=== PATIENT | male | born 1955 | race African-American/Black ===

== ENCOUNTER 2017-12-08 05:11 | Inpatient (IN) ==
[2017-12-08] MEDS ORDERED: MethylPREDNISolone Sod Succinate Inj 125 MG/2 ML Vial IV.PUSH ONE (05:37)
--- NOTE | 2017-12-08 05:54 | ED ---
HPI General Chief Complaint: Shortness of Breath/Dyspnea Stated Complaint: Respiratory Time Seen by Provider: 12/08/17 05:35 Source: patient Mode of arrival: EMS Limitations: no limitations History of Present Illness 62-year-old male came to the emergency room brought in by EMS for shortness of breath. Patient says that he has been short of breath for past 3 days. He has history of COPD and CHF. He ran out of his inhalers. He is taking all his other oral medications however. No history of fever or chills as per the patient. He is coughing up greenish colored sputum. Patient is a smoker. Denies any chest pain. Oxygen saturation was 87% on room air. It is 93% with 2 L of nasal cannula. Complaint: Reports shortness of breath Onset (ago): day(s) Severity: moderate Relieving factors: rest Exacerbating factors: exertion Known history of: Reports COPD Related Data Home Medications Medication Instructions Recorded Confirmed aspirin [Aspirin Low Dose] 81 mg PO DAILY 12/08/17 12/08/17 carvedilol [Coreg] 25 mg PO DAILY 12/08/17 12/08/17 lisinopril 20 mg PO DAILY 12/08/17 12/08/17 spironolactone 25 mg PO DAILY 12/08/17 12/08/17 Allergies Allergy/AdvReac Type Severity Reaction Status Date / Time No Known Allergies Allergy Verified 12/08/17 05:13 Review of Systems ROS: all other systems reviewed are negative Respiratory Reports dyspnea and Reports dyspnea on exertion ON LICENSE OF [facility] Medical History Medical History CHF (congestive heart failure) (Acute) COPD (chronic obstructive pulmonary disease) (Acute) HTN (hypertension) (Acute) Surgical History Surgical History History of back surgery (Acute) Family History Family History Other No pertinent family history Social History Social History Substance History: Active Abuse Second Hand Smoke Exposure: Yes Smoking Status: Current every day smoker Tobacco Type: Cigarettes How Often Do You Have a Drink Containing Alcohol: 2 to 4 times a month Recent Travel in [facility] within the Last 8 Weeks: No Recent Out of Country Travel within the Last 8 Weeks: No Substance Abuse Detail Marijuana: Substance Use Status: Active Route Used Substance Abuse: By Mouth Reason for Use: Calm Down and Feels Good Immunization History Tetanus Immunization: >5 Years Exam Narrative Exam Narrative: GENERAL: Awake, alert, moderate distress SKIN: Focused skin assessment warm/dry. HEAD: Atraumatic. Normocephalic. EYES: Pupils equal and round. No scleral icterus. No injection or drainage. ENT: No nasal bleeding or discharge. Mucous membranes pink and moist. NECK: Trachea midline. No JVD. CARDIOVASCULAR: Regular rate and rhythm. No murmur appreciated. RESPIRATORY: No accessory muscle use. Fine crackles bibasilar. GASTROINTESTINAL: Abdomen soft, non-tender, nondistended. Hepatic and splenic margins not palpable. MUSCULOSKELETAL: No obvious deformities. No clubbing. No cyanosis. No edema. NEUROLOGICAL: Awake and alert. No obvious cranial nerve deficits. Motor grossly within normal limits. Normal speech. PSYCHIATRIC: Appropriate mood and affect; insight and judgment normal. Course Initial Documented Vital Signs Temperature 98.7 F 12/08/17 05:13 Pulse Rate 106 H 12/08/17 05:13 Respiratory Rate 20 12/08/17 05:13 Blood Pressure 147/90 H 12/08/17 05:13 Pulse Oximetry 90 L 12/08/17 05:13 Last Documented Vital Signs Temperature 98.3 F 12/11/17 03:00 Pulse Rate 72 12/11/17 06:00 Respiratory Rate 16 12/11/17 04:06 Blood Pressure 113/77 12/11/17 03:00 Pulse Oximetry 97 12/11/17 03:00 Critical Care Time Critical Care Time: Yes Total Critical Care Time: 45 Attestation: Aggregate critical care time was 45 minutes. Time to perform other separately billable procedures was not included in the critical care time. My time did not include minutes spent treating any other patients simultaneously or on activities that did not directly contribute to the patient's treatment. The services I provided to this patient were to treat and/or prevent clinically significant deterioration that could result in: Respiratory distress, hypoxia, pulmonary edema I provided critical care services requiring my management, as noted below: Chart data review, documentation time, medication orders and management, vital sign assessments/reviewing monitor data, ordering and reviewing lab tests, ordering and interpreting/reviewing x-rays and diagnostic studies, care of the patient and discussion of the patient with the admitting physicians. Medical Decision Making MDM Narrative Medical decision making narrative: 5:54 AM awaiting for blood test result. Patient was given 2 DuoNeb treatments. IV Solu-Medrol. I will reassess him. 6:52 AM chest x-ray is read by the radiologist as pulmonary edema. BNP is elevated. Patient received 2 DuoNeb's and was fast asleep. His oxygen saturation on 3 L of oxygen via nasal cannula was 88%. I decided to start BiPAP. Patient has been admitted to the hospitalist to [facility]. I have also given him 60 mg of IV Lasix based on the chest x-ray result. Medical Screen Exam Complete: Yes Emergency Medical Condition: Yes Lab Data Result diagrams: 12/08/17 05:41 12/10/17 00:46 Lab Results 12/08/17 12/08/17 12/08/17 Range/Units 05:41 05:41 05:41 WBC 6.0 (4.0-11.0) th/mm3 RBC 4.10 L (4.50-5.90) mil/mm3 Hgb 13.9 (13.0-17.0) gm/dL Hct 40.7 (39.0-51.0) % MCV 99.5 (80.0-100.0) fL MCH 33.9 (27.0-34.0) pg MCHC 34.1 (32.0-36.0) % RDW 15.2 (11.6-17.2) % Plt Count 168 (150-450) th/mm3 MPV 8.2 (7.0-11.0) fL Neut % (Auto) 52.8 (16.0-70.0) % Lymph % (Auto) 32.3 (9.0-44.0) % [place] % (Auto) 14.0 H (0.0-8.0) % Eos % (Auto) 0.4 (0.0-4.0) % Baso % (Auto) 0.5 (0.0-2.0) % Neut # (Auto) 3.2 (1.8-7.7) th/mm3 Lymph # (Auto) 1.9 (1.0-4.8) th/mm3 [place] # (Auto) 0.8 (0.0-0.9) th/mm3 Eos # (Auto) 0.0 (0.0-0.4) th/mm3 Baso # (Auto) 0.0 (0.0-0.2) th/mm3 WBC Differential . Differential Comment Auto diff final Puncture Site Patient Temperature O2 Saturation (90-100) % ABG pH (7.380-7.420) ABG pCO2 (38-42) mmHg ABG pO2 (61-120) mmHg ABG HCO3 (22-26) mmol/L ABG O2 Content (12.0-20.0) Vol % ABG Base Excess (-2-2) mmol/L ABG Methemoglobin (0-2) % Willie Test Hemoglobin (12.0-16.0) G/DL Carboxyhemoglobin (0-4) % O2 Delivery Device Vent Setting Inspired O2 % Critical Value Sodium 145 (136-145) meq/L Potassium 3.7 (3.5-5.1) meq/L Chloride 111 H (98-107) meq/L Carbon Dioxide 24.6 (21.0-32.0) meq/L Anion Gap 9 (5-15) meq/L BUN 7 (7-18) mg/dL Creatinine 1.07 (0.60-1.30) mg/dL Estimated GFR 85 L (>89) mL/min Random Glucose 82 (74-106) mg/dL Calcium 7.9 L (8.5-10.1) mg/dL Magnesium (1.5-2.5) mg/dL Total Bilirubin 0.6 (0.2-1.0) mg/dL AST 86 H (15-37) U/L ALT 80 H (12-78) U/L Alkaline Phosphatase 83 (45-117) U/L Total Creatine Kinase (39-308) U/L Troponin I 0.03 (0.02-0.05) ng/mL B-Natriuretic Peptide 1070 H (0-100) pg/mL Total Protein 7.2 (6.4-8.2) g/dL Albumin 3.1 L (3.4-5.0) g/dL Urine Opiates Screen (Neg) Ur Barbiturates Screen (Neg) Ur Amphetamines Screen (Neg) U Benzodiazepines Scrn (Neg) Urine Cocaine Screen (Neg) U Cannabinoids Screen (Neg) Serum Alcohol (0-5) mg/dL 12/08/17 12/08/17 12/08/17 Range/Units 05:41 06:53 07:35 WBC (4.0-11.0) th/mm3 RBC (4.50-5.90) mil/mm3 Hgb (13.0-17.0) gm/dL Hct (39.0-51.0) % MCV (80.0-100.0) fL MCH (27.0-34.0) pg MCHC (32.0-36.0) % RDW (11.6-17.2) % Plt Count (150-450) th/mm3 MPV (7.0-11.0) fL Neut % (Auto) (16.0-70.0) % Lymph % (Auto) (9.0-44.0) % [place] % (Auto) (0.0-8.0) % Eos % (Auto) (0.0-4.0) % Baso % (Auto) (0.0-2.0) % Neut # (Auto) (1.8-7.7) th/mm3 Lymph # (Auto) (1.0-4.8) th/mm3 [place] # (Auto) (0.0-0.9) th/mm3 Eos # (Auto) (0.0-0.4) th/mm3 Baso # (Auto) (0.0-0.2) th/mm3 WBC Differential Differential Comment Puncture Site Right radial Patient Temperature 98.6 O2 Saturation 92 (90-100) % ABG pH 7.42 (7.380-7.420) ABG pCO2 39 (38-42) mmHg ABG pO2 85 (61-120) mmHg ABG HCO3 24 (22-26) mmol/L ABG O2 Content 18.0 (12.0-20.0) Vol % ABG Base Excess 0.4 (-2-2) mmol/L ABG Methemoglobin 0.7 (0-2) % Willie Test Present Hemoglobin 13.9 (12.0-16.0) G/DL Carboxyhemoglobin 4.1 H (0-4) % O2 Delivery Device Bipap Vent Setting 12ipap/6epap Inspired O2 60 % Critical Value No Sodium (136-145) meq/L Potassium (3.5-5.1) meq/L Chloride (98-107) meq/L Carbon Dioxide (21.0-32.0) meq/L Anion Gap (5-15) meq/L BUN (7-18) mg/dL Creatinine (0.60-1.30) mg/dL Estimated GFR (>89) mL/min Random Glucose (74-106) mg/dL Calcium (8.5-10.1) mg/dL Magnesium (1.5-2.5) mg/dL Total Bilirubin (0.2-1.0) mg/dL AST (15-37) U/L ALT (12-78) U/L Alkaline Phosphatase (45-117) U/L Total Creatine Kinase (39-308) U/L Troponin I (0.02-0.05) ng/mL B-Natriuretic Peptide (0-100) pg/mL Total Protein (6.4-8.2) g/dL Albumin (3.4-5.0) g/dL Urine Opiates Screen Neg (Neg) Ur Barbiturates Screen Neg (Neg) Ur Amphetamines Screen Neg (Neg) U Benzodiazepines Scrn Neg (Neg) Urine Cocaine Screen Pos H (Neg) U Cannabinoids Screen Neg (Neg) Serum Alcohol 107 H (0-5) mg/dL 12/08/17 12/08/17 12/08/17 Range/Units 08:26 14:05 21:33 WBC (4.0-11.0) th/mm3 RBC (4.50-5.90) mil/mm3 Hgb (13.0-17.0) gm/dL Hct (39.0-51.0) % MCV (80.0-100.0) fL MCH (27.0-34.0) pg MCHC (32.0-36.0) % RDW (11.6-17.2) % Plt Count (150-450) th/mm3 MPV (7.0-11.0) fL Neut % (Auto) (16.0-70.0) % Lymph % (Auto) (9.0-44.0) % [place] % (Auto) (0.0-8.0) % Eos % (Auto) (0.0-4.0) % Baso % (Auto) (0.0-2.0) % Neut # (Auto) (1.8-7.7) th/mm3 Lymph # (Auto) (1.0-4.8) th/mm3 [place] # (Auto) (0.0-0.9) th/mm3 Eos # (Auto) (0.0-0.4) th/mm3 Baso # (Auto) (0.0-0.2) th/mm3 WBC Differential Differential Comment Puncture Site Patient Temperature O2 Saturation (90-100) % ABG pH (7.380-7.420) ABG pCO2 (38-42) mmHg ABG pO2 (61-120) mmHg ABG HCO3 (22-26) mmol/L ABG O2 Content (12.0-20.0) Vol % ABG Base Excess (-2-2) mmol/L ABG Methemoglobin (0-2) % Willie Test Hemoglobin (12.0-16.0) G/DL Carboxyhemoglobin (0-4) % O2 Delivery Device Vent Setting Inspired O2 % Critical Value Sodium 142 (136-145) meq/L Potassium 3.9 4.2 (3.5-5.1) meq/L Chloride 108 H (98-107) meq/L Carbon Dioxide 24.5 (21.0-32.0) meq/L Anion Gap 10 (5-15) meq/L BUN 7 (7-18) mg/dL Creatinine 1.04 (0.60-1.30) mg/dL Estimated GFR 88 L (>89) mL/min Random Glucose 109 H (74-106) mg/dL Calcium 8.5 (8.5-10.1) mg/dL Magnesium 1.7 (1.5-2.5) mg/dL Total Bilirubin (0.2-1.0) mg/dL AST (15-37) U/L ALT (12-78) U/L Alkaline Phosphatase (45-117) U/L Total Creatine Kinase 244 203 (39-308) U/L Troponin I 0.03 Less than 0.02 L (0.02-0.05) ng/mL B-Natriuretic Peptide (0-100) pg/mL Total Protein (6.4-8.2) g/dL Albumin (3.4-5.0) g/dL Urine Opiates Screen (Neg) Ur Barbiturates Screen (Neg) Ur Amphetamines Screen (Neg) U Benzodiazepines Scrn (Neg) Urine Cocaine Screen (Neg) U Cannabinoids Screen (Neg) Serum Alcohol (0-5) mg/dL 12/10/17 Range/Units 00:46 WBC (4.0-11.0) th/mm3 RBC (4.50-5.90) mil/mm3 Hgb (13.0-17.0) gm/dL Hct (39.0-51.0) % MCV (80.0-100.0) fL MCH (27.0-34.0) pg MCHC (32.0-36.0) % RDW (11.6-17.2) % Plt Count (150-450) th/mm3 MPV (7.0-11.0) fL Neut % (Auto) (16.0-70.0) % Lymph % (Auto) (9.0-44.0) % [place] % (Auto) (0.0-8.0) % Eos % (Auto) (0.0-4.0) % Baso % (Auto) (0.0-2.0) % Neut # (Auto) (1.8-7.7) th/mm3 Lymph # (Auto) (1.0-4.8) th/mm3 [place] # (Auto) (0.0-0.9) th/mm3 Eos # (Auto) (0.0-0.4) th/mm3 Baso # (Auto) (0.0-0.2) th/mm3 WBC Differential Differential Comment Puncture Site Patient Temperature O2 Saturation (90-100) % ABG pH (7.380-7.420) ABG pCO2 (38-42) mmHg ABG pO2 (61-120) mmHg ABG HCO3 (22-26) mmol/L ABG O2 Content (12.0-20.0) Vol % ABG Base Excess (-2-2) mmol/L ABG Methemoglobin (0-2) % Willie Test Hemoglobin (12.0-16.0) G/DL Carboxyhemoglobin (0-4) % O2 Delivery Device Vent Setting Inspired O2 % Critical Value Sodium 139 (136-145) meq/L Potassium 4.4 (3.5-5.1) meq/L Chloride 100 D (98-107) meq/L Carbon Dioxide 31.2 (21.0-32.0) meq/L Anion Gap 8 (5-15) meq/L BUN 35 H (7-18) mg/dL Creatinine 1.38 H (0.60-1.30) mg/dL Estimated GFR 63 L (>89) mL/min Random Glucose 141 H (74-106) mg/dL Calcium 8.6 (8.5-10.1) mg/dL Magnesium 1.9 (1.5-2.5) mg/dL Total Bilirubin (0.2-1.0) mg/dL AST (15-37) U/L ALT (12-78) U/L Alkaline Phosphatase (45-117) U/L Total Creatine Kinase (39-308) U/L Troponin I (0.02-0.05) ng/mL B-Natriuretic Peptide (0-100) pg/mL Total Protein (6.4-8.2) g/dL Albumin (3.4-5.0) g/dL Urine Opiates Screen (Neg) Ur Barbiturates Screen (Neg) Ur Amphetamines Screen (Neg) U Benzodiazepines Scrn (Neg) Urine Cocaine Screen (Neg) U Cannabinoids Screen (Neg) Serum Alcohol (0-5) mg/dL Imaging Data Radiologist's impression: Chest X-Ray 12/08/17 05:38 CONCLUSION: Findings suggest pulmonary edema in the medial one third of both lungs. ECG Data Attestation: I personally reviewed and interpreted this ECG as follows: Interpretation: Twelve-lead EKG is reviewed by me. Normal sinus rhythm, left axis deviation, LV strain, tachycardia. Heart rate of 103 bpm. Discharge Plan Discharge Disposition Patient Disposition: 30 Still Patient Discharge Condition Condition: Stable Discharge Order Discharge Orders: Discharge Order (Routine); Ordered 12/11/17 Ordered By: Marin Sandoval Discharge Details Anticipated Discharge Date: 12/11/17 Discharge Comment: Follow up with PCP in three days Follow up with recovery specialist Doctor Corrine Castanon as scheduled. Physicians Team ED Provider: Humphrey Tay Attending Provider: Marin Sandoval Other Providers: Corrine Castanon Status ED Status: Left Department Discharge Information Discharge Date/Time: 12/08/17 09:48
[2017-12-08 05:59] LABS: Baso % (Auto) 0.5 % (0.0-2.0); Eos % (Auto) 0.4 % (0.0-4.0); Hematocrit 40.7 % (39.0-51.0); Hemoglobin 13.9 gm/dL (13.0-17.0); Lymph # (Auto) 1.9 th/mm3 (1.0-4.8); Lymph % (Auto) 32.3 % (9.0-44.0); Mean Corpuscular HGB Conc 34.1 % (32.0-36.0); Mean Corpuscular Hemoglobin 33.9 pg (27.0-34.0); Mean Corpuscular Volume 99.5 fL (80.0-100.0); Mean Platelet Volume 8.2 fL (7.0-11.0); Mono # (Auto) 0.8 th/mm3 (0.0-0.9); Neut # (Auto) 3.2 th/mm3 (1.8-7.7); Neut % (Auto) 52.8 % (16.0-70.0); Platelet Count 168 th/mm3 (150-450); Red Cell Distribution Width 15.2 % (11.6-17.2)
--- NOTE | 2017-12-08 06:03 | XR ---
EXAM DATE: 12/08/2017 5:51 AM EDT AGE/SEX: 62 years / Male INDICATIONS: Short of breath and chest pain. CLINICAL DATA: This is the patient's initial encounter. Patient reports that signs and symptoms have been present for 3 days and indicates a pain score of 6/10. MEDICAL/SURGICAL HISTORY: Congestive heart failure. None. COMPARISON: No prior exams available for comparison. FINDINGS: There is indistinctness of the central bronchopulmonary markings in the hilar and infrahilar region a s well as peribronchial thickening, characteristic of a combination of pulmonary venous hypertension and alveolar edema. The peripheral one third of both lungs are clear. The heart is normal in size. CONCLUSION: Findings suggest pulmonary edema in the medial one third of both lungs. Electronically signed by: Lewis Garces MD 12/08/2017 6:02 AM EDT
[2017-12-08 06:14] LABS: Albumin 3.1 g/dL (3.4-5.0); Anion Gap 9 meq/L (5-15); Aspartate Aminotransferase 86 U/L (15-37); Blood Urea Nitrogen 7 mg/dL (7-18); Calcium 7.9 mg/dL (8.5-10.1); Carbon Dioxide 24.6 meq/L (21.0-32.0); Chloride 111 meq/L (98-107); Glomerular Filtration Rate 85 mL/min (>89); Glucose,Random 82 mg/dL (74-106); Potassium 3.7 meq/L (3.5-5.1); Sodium 145 meq/L (136-145)
[2017-12-08 06:15] LABS: Alanine Aminotransferase 80 U/L (12-78)
[2017-12-08 06:19] LABS: Alkaline Phosphatase 83 U/L (45-117); Total Protein 7.2 g/dL (6.4-8.2); Troponin I 0.03 ng/mL (0.02-0.05)
[2017-12-08] MEDS ORDERED: Bisacodyl 10 MG Supp RECTAL PRN (06:47)
[2017-12-08 07:00] LABS: ABG Base Excess 0.4 mmol/L (-2-2); ABG PCO2 39 mmHg (38-42); ABG PO2 85 mmHg (61-120)
--- NOTE | 2017-12-08 08:38 | P.HP ---
History of Present Illness Primary Care Physician: Odessa Benton Chief Complaint: Shortness of Breath/Dyspnea History of Present Illness: This is a pleasant 62 y/o male who was brought in to Emergency Room Via EMS, due to Shortness of breath for past 3 days. He has history of COPD and CHF. He ran out of his inhalers. He is taking all his other oral medications however. No history of fever or chills as per the patient. He is coughing up greenish colored sputum. Patient is a smoker. Denies any chest pain. Oxygen saturation was 87 % on room air. It is 93% with 2 L of nasal cannula. has Hypertension. Marijuana abuse, received Bronchodilators in ER, IV Solu-Medrol CXR revealed Pulmonary Edema, BNP elevated His oxygen saturation on 3 L of oxygen via nasal cannula was 88%. was placed on BiPAP, admitted to [facility] and given Lasix 60 Mg. WBC 6, Hemoglobin 13.9, Platelet 168, Sodium 145, Potassium 3.7, Creatinine 1.07, BNP 1070. EKG normal sinus rhythm, Left axis deviation, Left Ventricular strain tachycardia. Inpatient Certification: I certify that the inpatient services were ordered in accordance with Medicare regulations governing the order. This includes certification that hospital inpatient services are reasonable and necessary and in the case of services not specified as inpatient-only under 42 CFR 419.22(n), that they are appropriately provided as inpatient services in accordance to with the 2-midnight benchmark under 43 CFR 412.3(e) Estimated Total Length of Stay (Days): 3 Plans for Post Hospital Care: Home Review of Systems All other systems reviewed negative except as stated in HPI [facility] - History History Provided By: Patient - Medical History Medical History: Medical History (Last Reviewed 12/08/17 @ 05:52 by Humphrey Tay MD) CHF (congestive heart failure) COPD (chronic obstructive pulmonary disease) HTN (hypertension) - Surgical History Surgical History: Surgical History (Last Reviewed 12/08/17 @ 05:52 by Humphrey Tay MD) History of back surgery - Family History Family History: Family History (Last Updated 12/08/17 @ 15:27 by Marin Sandoval MD) Other No pertinent family history - Tobacco History Second Hand Smoke Exposure: Yes Tobacco Use In Past 30 Days: Yes Smoking Status: Current every day smoker Tobacco Type: Cigarettes - Alcohol History How Often Do You Have a Drink Containing Alcohol: 4 or more times a week - Substance Use Type Marijuana Status: Active Route Used: By Mouth Reason for Use: Calm Down, Feels Good - Travel History Recent Travel in the [place] Within the Last 8 Weeks: No Recent Travel Out of the Country Within the Last 8 Weeks: No - Immunization History Tetanus Immunization: >5 Years Medications and Allergies Active Medications: Active Medications Al Hydroxide/Mg Hydroxide (Milk Of Magnesia Liq) 30 ml PO Q12H PRN PRN Reason: Mild Constipation Aspirin (Ecotrin) 81 mg PO DAILY [place] Bisacodyl (Dulcolax Supp) 10 mg RECTAL DAILY PRN PRN Reason: SEVERE CONSITIPATION Carvedilol (Coreg) 12.5 mg PO BID [place] Furosemide (Lasix Inj) 40 mg IV.PUSH BID@0900,1800 [place] Lactulose (Lactulose Liq) 30 ml PO DAILY PRN PRN Reason: SEVERE CONSITIPATION Lisinopril (Prinivil) 20 mg PO DAILY [place] Sennosides (Senokot) 17.2 mg PO Q12H PRN PRN Reason: Moderate Constipation Spironolactone (Aldactone) 25 mg PO DAILY [place] Allergies Allergy/AdvReac Type Severity Reaction Status Date / Time No Known Allergies Allergy Verified 12/08/17 05:13 Home Medications Medication Instructions Recorded Confirmed Type aspirin [Aspirin Low Dose] 81 mg PO DAILY 12/08/17 12/08/17 History carvedilol [Coreg] 25 mg PO DAILY 12/08/17 12/08/17 History lisinopril 20 mg PO DAILY 12/08/17 12/08/17 History spironolactone 25 mg PO DAILY 12/08/17 12/08/17 History Exam Vital signs: Vital Signs 12/08/17 05:13 12/08/17 05:16 12/08/17 05:53 Temperature 98.7 F Pulse Rate 106 H 105 H 102 H Respiratory Rate 20 22 24 Blood Pressure 147/90 H 140/90 Pulse Oximetry 90 L 94 L 12/08/17 06:00 12/08/17 06:05 12/08/17 06:35 Temperature Pulse Rate 92 H Respiratory Rate 18 Blood Pressure Pulse Oximetry 91 L 97 12/08/17 06:59 Temperature Pulse Rate 85 Respiratory Rate 22 Blood Pressure 179/85 H Pulse Oximetry Intake & Output 10/26/18 10/27/18 10/27/18 18:59 06:59 18:59 Output Total 850 / 850 Balance -850 / -850 Weight 79.379 kg Output: Urine 850 / 850 Narrative: GENERAL: Awake, alert, moderate distress SKIN: Focused skin assessment warm/dry. HEAD: Atraumatic. Normocephalic. EYES: Pupils equal and round. No scleral icterus. No injection or drainage. ENT: No nasal bleeding or discharge. Mucous membranes pink and moist. NECK: Trachea midline. No JVD. CARDIOVASCULAR: Regular rate and rhythm. No murmur appreciated. RESPIRATORY: No accessory muscle use. Fine crackles bibasilar. GASTROINTESTINAL: Abdomen soft, non-tender, nondistended. Hepatic and splenic margins not palpable. MUSCULOSKELETAL: No obvious deformities. No clubbing. No cyanosis. No edema. NEUROLOGICAL: Awake and alert. No obvious cranial nerve deficits. Motor grossly within normal limits. Normal speech. PSYCHIATRIC: Appropriate mood and affect; insight and judgment normal. Results - Labs CBC & Chem 7: 12/08/17 05:41 12/08/17 08:26 Labs: Laboratory Results - last 24 hr 12/08/17 12/08/17 12/08/17 05:41 05:41 05:41 WBC 6.0 RBC 4.10 L Hgb 13.9 Hct 40.7 MCV 99.5 MCH 33.9 MCHC 34.1 RDW 15.2 Plt Count 168 MPV 8.2 Neut % (Auto) 52.8 Lymph % (Auto) 32.3 [place] % (Auto) 14.0 H Eos % (Auto) 0.4 Baso % (Auto) 0.5 Neut # (Auto) 3.2 Lymph # (Auto) 1.9 [place] # (Auto) 0.8 Eos # (Auto) 0.0 Baso # (Auto) 0.0 WBC Differential . Differential Comment Auto diff final Puncture Site Patient Temperature O2 Saturation ABG pH ABG pCO2 ABG pO2 ABG HCO3 ABG O2 Content ABG Base Excess ABG Methemoglobin Willie Test Hemoglobin Carboxyhemoglobin O2 Delivery Device Vent Setting Inspired O2 Critical Value Sodium 145 Potassium 3.7 Chloride 111 H Carbon Dioxide 24.6 Anion Gap 9 BUN 7 Creatinine 1.07 Estimated GFR 85 L Random Glucose 82 Calcium 7.9 L Total Bilirubin 0.6 AST 86 H ALT 80 H Alkaline Phosphatase 83 Troponin I 0.03 B-Natriuretic Peptide 1070 H Total Protein 7.2 Albumin 3.1 L Serum Alcohol 12/08/17 12/08/17 05:41 06:53 WBC RBC Hgb Hct MCV MCH MCHC RDW Plt Count MPV Neut % (Auto) Lymph % (Auto) [place] % (Auto) Eos % (Auto) Baso % (Auto) Neut # (Auto) Lymph # (Auto) [place] # (Auto) Eos # (Auto) Baso # (Auto) WBC Differential Differential Comment Puncture Site Right radial Patient Temperature 98.6 O2 Saturation 92 ABG pH 7.42 ABG pCO2 39 ABG pO2 85 ABG HCO3 24 ABG O2 Content 18.0 ABG Base Excess 0.4 ABG Methemoglobin 0.7 Willie Test Present Hemoglobin 13.9 Carboxyhemoglobin 4.1 H O2 Delivery Device Bipap Vent Setting 12ipap/6epap Inspired O2 60 Critical Value No Sodium Potassium Chloride Carbon Dioxide Anion Gap BUN Creatinine Estimated GFR Random Glucose Calcium Total Bilirubin AST ALT Alkaline Phosphatase Troponin I B-Natriuretic Peptide Total Protein Albumin Serum Alcohol 107 H - Imaging Impressions Chest X-Ray 12/08/17 05:38 CONCLUSION: Findings suggest pulmonary edema in the medial one third of both lungs. Caprini VTE Risk Assessment Caprini VTE Risk Assessment: Moderate/High Risk (score >= 2) Caprini Risk Assessment Model: Point Value = 1 Point Value = 2 Point Value = 3 Point Value = 5 Age 41-60 Minor surgery BMI > 25 kg/m2 Swollen legs Varicose veins or History of unexplained or recurrent spontaneous Oral contraceptives or hormone replacement Sepsis (< 1 month) Serious lung disease, including pneumonia (< 1 month) Abnormal pulmonary function Acute myocardial infarction Congestive heart failure (< 1 month) History of inflammatory bowel disease Medical patient at bed rest Age 61-74 Arthroscopic surgery Major open surgery (> 45 min) Laparoscopic surgery (> 45 min) Malignancy Confined to bed (> 72 hours) Immobilizing plaster cast Central venous access Age >= 75 History of VTE Family history of VTE Factor V Leiden Prothrombin [id number] Lupus anticoagulant Anticardiolipin antibodies Elevated serum homocysteine Heparin-induced thrombocytopenia Other congenital or acquired thrombophilia Stroke (< 1 month) Elective arthroplasty Hip, pelvis, or leg fracture Acute spinal cord injury (< 1 month) Prophylaxis Regimen: Total Risk Factor Score Risk Level Prophylaxis Regimen 0-1 Low Early ambulation 2 Moderate Order ONE of the following: *Sequential Compression Device (SCD) *Heparin 5000 units SQ BID 3-4 Higher Order ONE of the following medications: *Heparin 5000 units SQ TID *Enoxaparin/Lovenox 40 mg SQ daily (WT < 150 kg, CrCl > 30 mL/min) *Enoxaparin/Lovenox 30 mg SQ daily (WT < 150 kg, CrCl > 10-29 mL/min) *Enoxaparin/Lovenox 30 mg SQ BID (WT < 150 kg, CrCl > 30 mL/min) AND/OR *Sequential Compression Device (SCD) 5 or more Highest Order ONE of the following medications: *Heparin 5000 units SQ TID (Preferred with Epidurals) *Enoxaparin/Lovenox 40 mg SQ daily (WT < 150 kg, CrCl > 30 mL/min) *Enoxaparin/Lovenox 30 mg SQ daily (WT < 150 kg, CrCl > 10-29 mL/min) *Enoxaparin/Lovenox 30 mg SQ BID (WT < 150 kg, CrCl > 30 mL/min) AND *Sequential Compression Device (SCD) Assessment and Plan - Plan 1. Respiratory Failure multifactorial secondary to CHF exacerbation asked for Echocardiogram, continue Lasix 40 mg every 12 hours, COPD exacerbation continue Bronchodilator, Mucolytic and incentive spirometry, Solu-Medrol 40 mg QID. 2. Tobacco dependence strongly recommended to stop smoking 3. Hypertension continue Home medicines and follow 4. Polysubstance abuse, Marijuana in the past, Cocaine positive. 5. Hepatitis C and HIV History states he has history DVT prophylaxis with Lovenox Code Status: full code. Discussed Condition With: Patient and Nurse. Discharge Planning: once improving.
[2017-12-08 08:39] LABS: Amphetamine Screen,Urine Neg (Neg); Barbiturate Screen,Urine Neg (Neg); Cannabinoid Screen,Urine Neg (Neg); Cocaine Screen,Urine Pos (Neg)
[2017-12-08 08:42] LABS: Opiate Screen,Urine Neg (Neg)
[2017-12-08 09:30] LABS: Calcium 8.5 mg/dL (8.5-10.1); Carbon Dioxide 24.5 meq/L (21.0-32.0); Potassium 3.9 meq/L (3.5-5.1)
[2017-12-08 09:34] LABS: Troponin I 0.03 ng/mL (0.02-0.05)
[2017-12-08] MEDS: Lisinopril 20 MG Tablet PO SCH (12:30)
[2017-12-08] MEDS: Carvedilol 12.5 MG Tablet PO SCH ×2 (12:30→20:32)
[2017-12-08] MEDS: Spironolactone 25 MG Tablet PO SCH (12:30)
[2017-12-08] MEDS: guaiFENesin 600 MG ER Tablet PO SCH ×2 (12:30→20:32)
[2017-12-08 15:19] LABS: Creatine Kinase 203 U/L (39-308)
[2017-12-08] MEDS: Enoxaparin Inj 40 MG/0.4 ML Syringe SQ SCH (18:26)
[2017-12-08 21:58] LABS: Potassium 4.2 meq/L (3.5-5.1)
[2017-12-08 21:59] LABS: Magnesium 1.7 mg/dL (1.5-2.5)
--- NOTE | 2017-12-09 00:04 | ECG ---
Date Performed: 12/08/2017 Time Performed: 05:33:29 PTAGE: 62 years EKG: SINUS TACHYCARDIA MARKED LEFT AXIS DEVIATION SEPTAL MYOCARDIAL INFARCTION MODERATE T-WAVE A BNORMALITY, CONSIDER ANTEROLATERAL ISCHEMIA ABNORMAL ECG PREVIOUS TRACING : 06/10/2009 10.42 Compared to previous tracing, THERE IS PSEUDONORMALIZATION OF PREVIOUSLY NOTED INFERIOR T-Wave Inversions DOCTOR: Cj Bird Interpretating Date/Time 12/09/2017 00:03:42
[2017-12-09] MEDS: MethylPREDNISolone Sod Succinate Inj 40 MG/ML Vial IV.PUSH SCH ×5 (01:11→23:50)
[2017-12-09] MEDS: Enoxaparin Inj 40 MG/0.4 ML Syringe SQ SCH (08:11)
[2017-12-09] MEDS: Carvedilol 12.5 MG Tablet PO SCH ×2 (08:11→20:56)
[2017-12-09] MEDS: Lisinopril 20 MG Tablet PO SCH (08:11)
[2017-12-09] MEDS: Spironolactone 25 MG Tablet PO SCH (08:11)
[2017-12-09] MEDS: guaiFENesin 600 MG ER Tablet PO SCH ×2 (08:11→20:56)
--- NOTE | 2017-12-09 08:31 | P.PN ---
Subjective Interval history: This is a pleasant 62 y/o male who was brought in to Emergency Room Via EMS, due to Shortness of breath for past 3 days. He has history of COPD and CHF. He ran out of his inhalers. He is taking all his other oral medications however. No history of fever or chills as per the patient. He is coughing up greenish colored sputum. Patient is a smoker. Denies any chest pain. Oxygen saturation was 87 % on room air. It is 93% with 2 L of nasal cannula. has Hypertension. Marijuana abuse, received Bronchodilators in ER, IV Solu-Medrol CXR revealed Pulmonary Edema, BNP elevated His oxygen saturation on 3 L of oxygen via nasal cannula was 88%. was placed on BiPAP, admitted to [facility] and given Lasix 60 Mg. WBC 6, Hemoglobin 13.9, Platelet 168, Sodium 145, Potassium 3.7, Creatinine 1.07, BNP 1070. EKG normal sinus rhythm, Left axis deviation, Left Ventricular strain tachycardia. 12/09: Seen in his bedroom, his lungs are clear will continue present care until do not have the rest of his Laboratory and Tests performed, no nausea, vomit or diarrhea. Physical Exam Vital signs: Vital Signs 12/08/17 11:53 12/08/17 12:00 12/08/17 12:30 Temperature Pulse Rate 101 H 88 88 Respiratory Rate 27 H 24 26 H Blood Pressure 119/75 122/78 Pulse Oximetry 98 97 98 12/08/17 13:00 12/08/17 13:01 12/08/17 13:30 Temperature Pulse Rate 86 88 89 Respiratory Rate 37 H 34 H 25 H Blood Pressure 135/90 126/97 H Pulse Oximetry 96 96 97 12/08/17 14:00 12/08/17 14:30 12/08/17 15:00 Temperature Pulse Rate 85 77 93 H Respiratory Rate 30 H 22 28 H Blood Pressure 122/86 129/93 H 127/96 H Pulse Oximetry 95 95 96 12/08/17 15:19 12/08/17 15:20 12/08/17 15:38 Temperature Pulse Rate 67 94 H Respiratory Rate 20 38 H Blood Pressure 132/88 Pulse Oximetry 99 97 12/08/17 16:00 12/08/17 19:00 12/08/17 20:00 Temperature 98.4 F 99.0 F Pulse Rate 85 111 H 104 H Respiratory Rate 20 41 H 33 H Blood Pressure Pulse Oximetry 99 95 91 L 12/08/17 20:40 12/08/17 21:00 12/08/17 21:20 Temperature Pulse Rate 83 82 75 Respiratory Rate 30 H 29 H 22 Blood Pressure 131/85 Pulse Oximetry 94 L 96 97 12/08/17 22:00 12/08/17 22:01 12/08/17 23:00 Temperature Pulse Rate 94 H 82 74 Respiratory Rate 24 23 32 H Blood Pressure 104/70 Pulse Oximetry 92 L 92 L 93 L 12/09/17 00:00 12/09/17 00:19 12/09/17 01:00 Temperature 97.6 F Pulse Rate 70 71 69 Respiratory Rate 19 18 20 Blood Pressure 102/69 Pulse Oximetry 94 L 94 L 12/09/17 02:00 12/09/17 03:00 12/09/17 04:00 Temperature 97.9 F Pulse Rate 81 73 71 Respiratory Rate 20 20 27 H Blood Pressure 94/60 L Pulse Oximetry 93 L 95 94 L 12/09/17 04:01 12/09/17 05:00 12/09/17 06:00 Temperature Pulse Rate 80 81 83 Respiratory Rate 33 H 24 24 Blood Pressure 100/68 122/83 Pulse Oximetry 96 95 95 12/09/17 07:00 12/09/17 07:39 12/09/17 08:16 Temperature 98.1 F Pulse Rate 59 L 82 79 Respiratory Rate 28 H 33 H 18 Blood Pressure 111/77 Pulse Oximetry 96 96 99 Intake & Output 12/08/17 12/09/17 12/09/17 18:59 06:59 18:59 Intake Total 400 / 400 Output Total 850 / 850 400 / 400 Balance -850 / -850 0 / 0 Weight 70.5 kg Intake: Oral 400 / 400 Output: Urine 850 / 850 400 / 400 Other: Date of Last Bowel Movement 12/08/17 12/08/17 # Bowel Movements 0 Narrative: GENERAL: Awake, alert and No distress SKIN: Focused skin assessment warm/dry. HEAD: Atraumatic. Normocephalic. EYES: Pupils equal and round. No scleral icterus. No injection or drainage. ENT: No nasal bleeding or discharge. Mucous membranes pink and moist. NECK: Trachea midline. No JVD. CARDIOVASCULAR: Regular rate and rhythm. No murmur appreciated. RESPIRATORY: Breath sounds bilateral without crackles or wheezing. GASTROINTESTINAL: Abdomen soft, non-tender, nondistended. Hepatic and splenic margins not palpable. MUSCULOSKELETAL: No obvious deformities. No clubbing. No cyanosis. No edema. NEUROLOGICAL: Awake and alert. No obvious cranial nerve deficits. PSYCHIATRIC: Appropriate mood and affect; insight and judgment normal. Results - Labs CBC & Chem 7: 12/08/17 05:41 12/08/17 21:33 Laboratory Results - last 24 hr 12/08/17 12/08/17 12/08/17 07:35 08:26 14:05 Sodium 142 Potassium 3.9 Chloride 108 H Carbon Dioxide 24.5 Anion Gap 10 BUN 7 Creatinine 1.04 Estimated GFR 88 L Random Glucose 109 H Calcium 8.5 Magnesium Total Creatine Kinase 244 203 Troponin I 0.03 Less than 0.02 L Urine Opiates Screen Neg Ur Barbiturates Screen Neg Ur Amphetamines Screen Neg U Benzodiazepines Scrn Neg Urine Cocaine Screen Pos H U Cannabinoids Screen Neg 12/08/17 21:33 Sodium Potassium 4.2 Chloride Carbon Dioxide Anion Gap BUN Creatinine Estimated GFR Random Glucose Calcium Magnesium 1.7 Total Creatine Kinase Troponin I Urine Opiates Screen Ur Barbiturates Screen Ur Amphetamines Screen U Benzodiazepines Scrn Urine Cocaine Screen U Cannabinoids Screen - Imaging Chest X-Ray 12/08/17 05:38 CONCLUSION: Findings suggest pulmonary edema in the medial one third of both lungs. - Procedures none Assessment and Plan - Plan 1. Respiratory Failure multifactorial secondary to CHF exacerbation asked for Echocardiogram, continue Lasix 40 mg every 12 hours, COPD exacerbation continue Bronchodilator, Mucolytic and incentive spirometry, Solu-Medrol decreased to 20 mg QID. 2. CHF exacerbation awaiting for Echocardiogram for staging. 3. Hypertension continue Home medicines and follow 4. Polysubstance abuse, Marijuana in the past, Cocaine positive. strongly recommended to stop behavior. 5. Hepatitis C and HIV History states he has history and receiving treatment as outpatient. 6. Tobacco dependence strongly recommended to stop smoking DVT prophylaxis with Lovenox Code Status: Full code. Discussed Condition With: Patient and nurse Miss Schuler Discharge Planning: Expected in am tomorrow.
--- NOTE | 2017-12-09 15:02 | ECHRPT ---
Indication: heart failure CONCLUSIONS Mild concentric left ventricular hypertrophy. The left ventricular systolic function is severely reduced with an estimated ejection fraction in th e range of 25-30%. The left atrial size is mildly dilated. [id number] mitral valve regurgitation. There is mild tricuspid valve regurgitation. The estimated pulmonary arterial pressure is 27 mmHg. BP: / HR: Rhythm: MEASUREMENTS (Male / Female) Normal Values Technical Quality: 2D ECHO LV Diastolic Diameter PLAX 5.4 cm 4.2 - 5.9 / 3.9 - 5.3 cm LV Systolic Diameter PLAX 5.0 cm IVS Diastolic Thickness 1.4 cm 0.6 - 1.0 / 0.6 - 0.9 cm LVPW Diastolic Thickness 1.4 cm 0.6 - 1.0 / 0.6 - 0.9 cm LV Relative Wall Thickness 0.5 LVOT Diameter 2.1 cm Aortic Root Diameter 2.3 cm LA Systolic Diameter LX 4.1 cm 3.0 - 4.0 / 2.7 - 3.8 cm LV Ejection Fraction MOD BP 28.0 % >= 55 % LV Ejection Fraction MOD 4C 26.7 % LV Ejection Fraction 4C AL 26.7 % LV Ejection Fraction MOD 2C 29.7 % LV Ejection Fraction 2C AL 29.5 % M-MODE Aortic Root Diameter MM 3.4 cm LA Systolic Diameter MM 3.0 cm LA Ao Ratio MM 0.9 AV Cusp Separation MM 1.8 cm DOPPLER AV Peak Velocity 140.0 cm/s AV Peak Gradient 7.8 mmHg LVOT Peak Velocity 56.3 cm/s LVOT Peak Gradient 1.3 mmHg AV Area Cont Eq pk 1.4 cm Mitral E Point Velocity 65.6 cm/s Mitral A Point Velocity 62.7 cm/s Mitral E to A Ratio 1.0 LV E' Lateral Velocity 7.0 cm/s Mitral E to LV E' Lateral Ratio 9.3 LV E' Septal Velocity 6.3 cm/s Mitral E to LV E' Septal Ratio 10.3 TR Peak Velocity 208.0 cm/s TR Peak Gradient 17.3 mmHg Right Atrial Pressure 10.0 mmHg Pulmonary Artery Systolic Pressu 27.3 mmHg Right Ventricular Systolic Press 27.3 mmHg PV Peak Velocity 104.0 cm/s PV Peak Gradient 4.3 mmHg FINDINGS LEFT VENTRICLE Normal left ventricular size. Mild concentric left ventricular hypertrophy. The left ventricular systolic function is severely reduced with an estimated ejection fraction in th e range of 25-30%. RIGHT VENTRICLE Normal right ventricular size and systolic function. LEFT ATRIUM The left atrial size is mildly dilated. RIGHT ATRIUM The right atrial size is normal. ATRIAL SEPTUM Normal atrial septal thickness without atrial level shunting by limited color doppler interrogation. AORTA The aortic root and proximal ascending aorta are normal in size on limited imaging. MITRAL VALVE [id number] mitral valve regurgitation. AORTIC VALVE Trileaflet aortic valve. No aortic valve stenosis or regurgitation. TRICUSPID VALVE There is mild tricuspid valve regurgitation. The estimated pulmonary arterial pressure is 27 mmHg. PULMONARY VALVE No pulmonary valve regurgitation or stenosis. VESSELS The inferior vena cava is normal in size. PERICARDIUM No pericardial effusion. Nayana Vo MD, FACC (Electronically Signed) Final Date:09 December 2017 15:01
[2017-12-09] MEDS: Furosemide 40 MG Tablet PO SCH (17:16)
[2017-12-10 01:38] LABS: Calcium 8.6 mg/dL (8.5-10.1); Carbon Dioxide 31.2 meq/L (21.0-32.0); Magnesium 1.9 mg/dL (1.5-2.5); Potassium 4.4 meq/L (3.5-5.1)
[2017-12-10] MEDS: MethylPREDNISolone Sod Succinate Inj 40 MG/ML Vial IV.PUSH SCH ×4 (05:41→23:37)
[2017-12-10] MEDS: guaiFENesin 600 MG ER Tablet PO SCH ×2 (08:24→21:40)
[2017-12-10] MEDS: Lisinopril 20 MG Tablet PO SCH (08:24)
[2017-12-10] MEDS: Enoxaparin Inj 40 MG/0.4 ML Syringe SQ SCH (08:24)
[2017-12-10] MEDS: Spironolactone 25 MG Tablet PO SCH (08:24)
[2017-12-10] MEDS: Carvedilol 12.5 MG Tablet PO SCH ×2 (08:24→21:40)
[2017-12-10] MEDS: Furosemide 40 MG Tablet PO SCH ×2 (08:58→17:08)
--- NOTE | 2017-12-10 09:25 | P.PN ---
Subjective Interval history: This is a pleasant 62 y/o male who was brought in to Emergency Room Via EMS, due to Shortness of breath for past 3 days. He has history of COPD and CHF. He ran out of his inhalers. He is taking all his other oral medications however. No history of fever or chills as per the patient. He is coughing up greenish colored sputum. Patient is a smoker. Denies any chest pain. Oxygen saturation was 87 % on room air. It is 93% with 2 L of nasal cannula. has Hypertension. Marijuana abuse, received Bronchodilators in ER, IV Solu-Medrol CXR revealed Pulmonary Edema, BNP elevated His oxygen saturation on 3 L of oxygen via nasal cannula was 88%. was placed on BiPAP, admitted to [facility] and given Lasix 60 Mg. WBC 6, Hemoglobin 13.9, Platelet 168, Sodium 145, Potassium 3.7, Creatinine 1.07, BNP 1070. EKG normal sinus rhythm, Left axis deviation, Left Ventricular strain tachycardia. 12/09: Seen in his bedroom, his lungs are clear will continue present care until do not have the rest of his Laboratory and Tests performed. 12/10: Had his Echocardiogram found with Mild concentric left ventricular Hypertrophy, severely reduced Ejection fraction, 25-30%, mildly dilated left atrium, tricuspid valve regurgitation, Pulmonary arterial Pressure 27 mm Hg. Discussed with ammunition specialist doctor Corrine Castanon recommended to continue Lasix and okay to discharge Home on LifeVest and close follow up by ammunition specialist. Physical Exam Vital signs: Vital Signs 12/09/17 09:40 12/09/17 10:33 12/09/17 11:30 Temperature Pulse Rate 80 60 59 L Respiratory Rate 18 Blood Pressure Pulse Oximetry 12/09/17 12:00 12/09/17 13:00 12/09/17 14:00 Temperature 98.1 F Pulse Rate 79 68 72 Respiratory Rate 16 Blood Pressure 119/91 H Pulse Oximetry 98 12/09/17 14:28 12/09/17 16:00 12/09/17 16:24 Temperature 98.1 F Pulse Rate 68 79 71 Respiratory Rate 18 18 Blood Pressure 117/76 Pulse Oximetry 97 12/09/17 16:51 12/09/17 17:26 12/09/17 19:00 Temperature Pulse Rate 77 80 82 Respiratory Rate Blood Pressure Pulse Oximetry 12/09/17 20:00 12/09/17 21:00 12/09/17 21:37 Temperature 98.2 F Pulse Rate 81 86 67 Respiratory Rate 20 16 Blood Pressure 104/57 L Pulse Oximetry 98 97 12/09/17 22:00 12/09/17 23:00 12/09/17 23:50 Temperature Pulse Rate 83 83 89 Respiratory Rate 18 Blood Pressure Pulse Oximetry 12/10/17 00:00 12/10/17 01:00 12/10/17 02:00 Temperature 98.3 F Pulse Rate 76 79 70 Respiratory Rate 18 Blood Pressure 108/73 Pulse Oximetry 98 12/10/17 03:00 12/10/17 03:24 12/10/17 03:45 Temperature 98.1 F Pulse Rate 68 67 62 Respiratory Rate 18 18 Blood Pressure 114/78 Pulse Oximetry 97 12/10/17 04:00 12/10/17 05:00 12/10/17 05:57 Temperature Pulse Rate 62 66 69 Respiratory Rate Blood Pressure Pulse Oximetry 12/10/17 07:00 12/10/17 07:30 12/10/17 07:45 Temperature Pulse Rate 70 77 72 Respiratory Rate 16 Blood Pressure Pulse Oximetry 97 12/10/17 08:00 12/10/17 08:48 Temperature 98.0 F Pulse Rate 80 80 Respiratory Rate 18 Blood Pressure 115/82 Pulse Oximetry 96 Intake & Output 12/09/17 12/10/17 12/10/17 18:59 06:59 18:59 Intake Total 1220 / 1220 480 / 480 Output Total 750 / 750 650 / 650 Balance 470 / 470 -170 / -170 Weight 72 kg Intake: Oral 1220 / 1220 480 / 480 Output: Urine 750 / 750 650 / 650 Other: Date of Last Bowel Movement 12/09/17 12/09/17 12/08/17 # Bowel Movements 1 0 Narrative: GENERAL: Awake, alert and No distress SKIN: Focused skin assessment warm/dry. HEAD: Atraumatic. Normocephalic. EYES: Pupils equal and round. No scleral icterus. No injection or drainage. ENT: No nasal bleeding or discharge. Mucous membranes pink and moist. NECK: Trachea midline. No JVD. CARDIOVASCULAR: Regular rate and rhythm. No murmur appreciated. RESPIRATORY: Breath sounds bilateral without crackles or wheezing. GASTROINTESTINAL: Abdomen soft, non-tender, nondistended. Hepatic and splenic margins not palpable. MUSCULOSKELETAL: No obvious deformities. No clubbing. No cyanosis. No edema. NEUROLOGICAL: Awake and alert. No obvious cranial nerve deficits. PSYCHIATRIC: Appropriate mood and affect; insight and judgment normal. Results - Labs CBC & Chem 7: 12/08/17 05:41 12/10/17 00:46 Laboratory Results - last 24 hr 12/10/17 00:46 Sodium 139 Potassium 4.4 Chloride 100 D Carbon Dioxide 31.2 Anion Gap 8 BUN 35 H Creatinine 1.38 H Estimated GFR 63 L Random Glucose 141 H Calcium 8.6 Magnesium 1.9 - Imaging Chest X-Ray 12/08/17 05:38 CONCLUSION: Findings suggest pulmonary edema in the medial one third of both lungs. - Procedures none Assessment and Plan - Plan 1. Respiratory Failure multifactorial secondary to CHF exacerbation asked for Echocardiogram, continue Lasix 40 mg every 12 hours, COPD exacerbation continue Bronchodilator, Mucolytic and incentive spirometry, Solu-Medrol decreased to 20 mg QID. will switch to by mouth Prednisone starting tomorrow low dose for five days. 2. CHF exacerbation awaiting for Echocardiogram for staging. Improving will decrease dose of Lasix to 40 Mg daily, will need LifeVest for discharge. he had mild increase of Creatinine level. to 1.38 3. Hypertension controlled. 4. Polysubstance abuse, Marijuana in the past, Cocaine positive. strongly recommended to stop behavior. 5. Hepatitis C and HIV History states he has history and receiving treatment as outpatient. 6. Tobacco dependence strongly recommended to stop smoking DVT prophylaxis with Lovenox Code Status: Full code. Discussed Condition With: Patient and Nurse Miss Schuler. Discharge Planning: Expected in am tomorrow.
--- NOTE | 2017-12-10 11:47 | P.CONCA ---
History of Present Illness Primary Care Provider: Odessa Benton Chief Complaint: Shortness of Breath/Dyspnea [facility] - History History Provided By: Patient - Medical History Medical History: Medical History (Last Reviewed 12/08/17 @ 05:52 by Humphrey Tay MD) CHF (congestive heart failure) COPD (chronic obstructive pulmonary disease) HTN (hypertension) - Surgical History Surgical History: Surgical History (Last Reviewed 12/08/17 @ 05:52 by Humphrey Tay MD) History of back surgery - Family History Family History: Family History (Last Updated 12/08/17 @ 15:27 by Marin Sandoval MD) Other No pertinent family history - Tobacco History Second Hand Smoke Exposure: Yes Tobacco Use In Past 30 Days: Yes Smoking Status: Current every day smoker Tobacco Type: Cigarettes - Alcohol History How Often Do You Have a Drink Containing Alcohol: 2 to 4 times a month - Substance Use History Substance History: Active Abuse - Substance Use Type Marijuana Type: marijuana, coccaine Status: Active Route Used: Inhalation Last Used: last night Reason for Use: Get High - Travel History Recent Travel in the [place] Within the Last 8 Weeks: No Recent Travel Out of the Country Within the Last 8 Weeks: No - Immunization History Tetanus Immunization: Unsure Hx Influenza Vaccine This Season: No Medications and Allergies Active Medications: Active Medications Al Hydroxide/Mg Hydroxide (Milk Of Shanda Conde) 30 ml PO Q12H PRN PRN Reason: Mild Constipation Albuterol (Duoneb Neb (Hitesh)) 1 ampul NEB Q4HR NEB [facility] Last Admin: 12/10/17 11:39 Dose: 1 ampul Aspirin (Ecotrin) 81 mg PO DAILY [facility] Last Admin: 12/10/17 08:24 Dose: 81 mg Bisacodyl (Dulcolax Supp) 10 mg RECTAL DAILY PRN PRN Reason: SEVERE CONSITIPATION Carvedilol (Coreg) 12.5 mg PO BID [facility] Last Admin: 12/10/17 08:24 Dose: 12.5 mg Enoxaparin Sodium (Lovenox Inj) 40 mg SQ DAILY [facility] Last Admin: 12/10/17 08:24 Dose: 40 mg Furosemide (Lasix) 40 mg PO BID@0900,1800 [facility] Last Admin: 12/10/17 08:58 Dose: Not Given Guaifenesin (Mucinex Er) 600 mg PO BID [facility] Last Admin: 12/10/17 08:24 Dose: 600 mg Lactulose (Lactulose Liq) 30 ml PO DAILY PRN PRN Reason: SEVERE CONSITIPATION Lisinopril (Prinivil) 20 mg PO DAILY [facility] Last Admin: 12/10/17 08:24 Dose: 20 mg Methylprednisolone Sodium Succinate (Solumedrol Inj) 20 mg IV.PUSH Q6H [facility] Last Admin: 12/10/17 11:36 Dose: 20 mg Sennosides (Senokot) 17.2 mg PO Q12H PRN PRN Reason: Moderate Constipation Spironolactone (Aldactone) 25 mg PO DAILY [facility] Last Admin: 12/10/17 08:24 Dose: 25 mg Allergies Allergy/AdvReac Type Severity Reaction Status Date / Time No Known Allergies Allergy Verified 12/08/17 05:13 Home Medications Medication Instructions Recorded Confirmed Type aspirin [Aspirin Low Dose] 81 mg PO DAILY 12/08/17 12/08/17 History carvedilol [Coreg] 25 mg PO DAILY 12/08/17 12/08/17 History lisinopril 20 mg PO DAILY 12/08/17 12/08/17 History spironolactone 25 mg PO DAILY 12/08/17 12/08/17 History Exam Vital signs: Vital Signs 12/09/17 12:00 12/09/17 13:00 12/09/17 14:00 Temperature 98.1 F Pulse Rate 79 68 72 Respiratory Rate 16 Blood Pressure 119/91 H Pulse Oximetry 98 12/09/17 14:28 12/09/17 16:00 12/09/17 16:24 Temperature 98.1 F Pulse Rate 68 79 71 Respiratory Rate 18 18 Blood Pressure 117/76 Pulse Oximetry 97 12/09/17 16:51 12/09/17 17:26 12/09/17 19:00 Temperature Pulse Rate 77 80 82 Respiratory Rate Blood Pressure Pulse Oximetry 12/09/17 20:00 12/09/17 21:00 12/09/17 21:37 Temperature 98.2 F Pulse Rate 81 86 67 Respiratory Rate 20 16 Blood Pressure 104/57 L Pulse Oximetry 98 97 12/09/17 22:00 12/09/17 23:00 12/09/17 23:50 Temperature Pulse Rate 83 83 89 Respiratory Rate 18 Blood Pressure Pulse Oximetry 12/10/17 00:00 12/10/17 01:00 12/10/17 02:00 Temperature 98.3 F Pulse Rate 76 79 70 Respiratory Rate 18 Blood Pressure 108/73 Pulse Oximetry 98 12/10/17 03:00 12/10/17 03:24 12/10/17 03:45 Temperature 98.1 F Pulse Rate 68 67 62 Respiratory Rate 18 18 Blood Pressure 114/78 Pulse Oximetry 97 12/10/17 04:00 12/10/17 05:00 12/10/17 05:57 Temperature Pulse Rate 62 66 69 Respiratory Rate Blood Pressure Pulse Oximetry 12/10/17 07:00 12/10/17 07:30 12/10/17 07:45 Temperature Pulse Rate 70 77 72 Respiratory Rate 16 Blood Pressure Pulse Oximetry 97 12/10/17 08:00 12/10/17 08:48 12/10/17 09:56 Temperature 98.0 F Pulse Rate 80 80 92 H Respiratory Rate 18 Blood Pressure 115/82 Pulse Oximetry 96 12/10/17 11:00 12/10/17 11:41 Temperature Pulse Rate 89 78 Respiratory Rate 16 Blood Pressure Pulse Oximetry Intake & Output 12/09/17 12/10/17 12/10/17 18:59 06:59 18:59 Intake Total 1220 / 1220 480 / 480 Output Total 750 / 750 650 / 650 Balance 470 / 470 -170 / -170 Weight 72 kg Intake: Oral 1220 / 1220 480 / 480 Output: Urine 750 / 750 650 / 650 Other: Date of Last Bowel Movement 12/09/17 12/09/17 12/08/17 # Bowel Movements 1 0 Results 12/08/17 05:41 12/10/17 00:46 Cardiac Enzymes 12/08/17 Range/Units 14:05 Troponin I Less than 0.02 L (0.02-0.05) ng/mL Comprehensive Metabolic Panel 12/08/17 12/10/17 Range/Units 21:33 00:46 Sodium 139 (136-145) meq/L Potassium 4.2 4.4 (3.5-5.1) meq/L Chloride 100 D (98-107) meq/L Carbon Dioxide 31.2 (21.0-32.0) meq/L BUN 35 H (7-18) mg/dL Creatinine 1.38 H (0.60-1.30) mg/dL Calcium 8.6 (8.5-10.1) mg/dL Intake and Output 12/09/17 12/10/17 12/10/17 22:59 06:59 14:59 Intake Total 1220 / 1220 480 / 480 Output Total 750 / 750 650 / 650 Balance 470 / 470 -170 / -170 Intake: Oral 1220 / 1220 480 / 480 Output: Urine 750 / 750 650 / 650 Other: Date of Last Bowel Movement 12/08/17 12/09/17 12/08/17 # Bowel Movements 1 0 Weight 72 kg Assessment and Plan - Plan DCM EF 25-30% continue Coreg, Lisinopril, and Spirinolacone, has been on this regimen for 5 years continue lasix 40mg po BID -ok to d/c home once fitted with lifevest -close follow up with primary facility maintenance worker
[2017-12-11] MEDS: MethylPREDNISolone Sod Succinate Inj 40 MG/ML Vial IV.PUSH SCH (06:16)
[2017-12-11] MEDS: Lisinopril 20 MG Tablet PO SCH (09:14)
[2017-12-11] MEDS: Enoxaparin Inj 40 MG/0.4 ML Syringe SQ SCH (09:14)
[2017-12-11] MEDS: guaiFENesin 600 MG ER Tablet PO SCH ×2 (09:14→20:01)
[2017-12-11] MEDS: Carvedilol 12.5 MG Tablet PO SCH ×2 (09:14→20:01)
[2017-12-11] MEDS: Spironolactone 25 MG Tablet PO SCH (09:15)
--- NOTE | 2017-12-11 09:25 | P.PN ---
Subjective Interval history: This is a pleasant 62 y/o male who was brought in to Emergency Room Via EMS, due to Shortness of breath for past 3 days. He has history of COPD and CHF. He ran out of his inhalers. He is taking all his other oral medications however. No history of fever or chills as per the patient. He is coughing up greenish colored sputum. Patient is a smoker. Denies any chest pain. Oxygen saturation was 87 % on room air. It is 93% with 2 L of nasal cannula. has Hypertension. Marijuana abuse, received Bronchodilators in ER, IV Solu-Medrol CXR revealed Pulmonary Edema, BNP elevated His oxygen saturation on 3 L of oxygen via nasal cannula was 88%. was placed on BiPAP, admitted to [facility] and given Lasix 60 Mg. WBC 6, Hemoglobin 13.9, Platelet 168, Sodium 145, Potassium 3.7, Creatinine 1.07, BNP 1070. EKG normal sinus rhythm, Left axis deviation, Left Ventricular strain tachycardia. 12/09: Seen in his bedroom, his lungs are clear will continue present care until do not have the rest of his Laboratory and Tests performed. 12/10: Had his Echocardiogram found with Mild concentric left ventricular Hypertrophy, severely reduced Ejection fraction, 25-30%, mildly dilated left atrium, tricuspid valve regurgitation, Pulmonary arterial Pressure 27 mm Hg. Discussed with credentialing specialist doctor Corrnie Castanon recommended to continue Lasix and okay to discharge Home on LifeVest and close follow up by credentialing specialist. 12/11: patient discussed with nurse Miss Morrell and MDR, he will go later today after LifeVest placed. okay to discharge by credentialing specialist and follow as outpatient. Physical Exam Vital signs: Vital Signs 12/10/17 09:56 12/10/17 11:00 12/10/17 11:41 Temperature Pulse Rate 92 H 89 78 Respiratory Rate 16 Blood Pressure Pulse Oximetry 12/10/17 12:00 12/10/17 13:00 12/10/17 13:45 Temperature 98.6 F Pulse Rate 82 80 85 Respiratory Rate 18 Blood Pressure 116/82 Pulse Oximetry 100 12/10/17 15:00 12/10/17 16:00 12/10/17 16:16 Temperature 98.7 F Pulse Rate 94 H 75 76 Respiratory Rate 18 18 Blood Pressure 112/70 Pulse Oximetry 95 12/10/17 17:00 12/10/17 17:37 12/10/17 19:00 Temperature Pulse Rate 82 89 80 Respiratory Rate Blood Pressure Pulse Oximetry 12/10/17 20:00 12/10/17 20:14 12/10/17 21:00 Temperature 98.2 F Pulse Rate 72 89 66 Respiratory Rate 16 19 Blood Pressure 124/79 Pulse Oximetry 97 12/10/17 22:00 12/10/17 23:00 12/10/17 23:51 Temperature Pulse Rate 70 64 72 Respiratory Rate 16 Blood Pressure Pulse Oximetry 12/11/17 00:00 12/11/17 01:00 12/11/17 02:00 Temperature 98.2 F Pulse Rate 69 72 72 Respiratory Rate 16 Blood Pressure 114/75 Pulse Oximetry 98 12/11/17 03:00 12/11/17 04:00 12/11/17 04:06 Temperature 98.3 F Pulse Rate 72 62 59 L Respiratory Rate 16 16 Blood Pressure 113/77 Pulse Oximetry 97 12/11/17 05:00 12/11/17 06:00 Temperature Pulse Rate 65 72 Respiratory Rate Blood Pressure Pulse Oximetry Intake & Output 12/10/17 12/11/17 12/11/17 18:59 06:59 18:59 Intake Total 920 / 920 480 / 480 Output Total 1150 / 1150 400 / 400 Balance -230 / -230 80 / 80 Weight 72 kg Intake: Oral 920 / 920 480 / 480 Output: Urine 1150 / 1150 400 / 400 Other: # Voids 1 Date of Last Bowel Movement 12/10/17 12/10/17 # Bowel Movements 1 1 Narrative: GENERAL: Awake, alert and No distress SKIN: Focused skin assessment warm/dry. HEAD: Atraumatic. Normocephalic. EYES: Pupils equal and round. No scleral icterus. No injection or drainage. ENT: No nasal bleeding or discharge. Mucous membranes pink and moist. NECK: Trachea midline. No JVD. CARDIOVASCULAR: Regular rate and rhythm. No murmur appreciated. RESPIRATORY: Breath sounds bilateral without crackles or wheezing. GASTROINTESTINAL: Abdomen soft, non-tender, nondistended. Hepatic and splenic margins not palpable. MUSCULOSKELETAL: No obvious deformities. No clubbing. No cyanosis. No edema. NEUROLOGICAL: Awake and alert. No obvious cranial nerve deficits. PSYCHIATRIC: Appropriate mood and affect; insight and judgment normal. Results - Labs CBC & Chem 7: 12/08/17 05:41 12/10/17 00:46 - Imaging Chest X-Ray 12/08/17 05:38 CONCLUSION: Findings suggest pulmonary edema in the medial one third of both lungs. - Procedures none Assessment and Plan - Plan 1. Respiratory Failure multifactorial secondary to CHF exacerbation asked for Echocardiogram, continue Lasix 40 mg every 12 hours, COPD exacerbation continue Bronchodilator, Mucolytic and incentive spirometry, Solu-Medrol decreased to 20 mg QID. will switch to by mouth Prednisone starting tomorrow low dose for five days. 2. CHF exacerbation awaiting for Echocardiogram for staging. Improving will decrease dose of Lasix to 40 Mg daily, will need LifeVest for discharge. he had mild increase of Creatinine level. to 1.38 3. Hypertension controlled. 4. Polysubstance abuse, Marijuana in the past, Cocaine positive. strongly recommended to stop behavior. 5. Hepatitis C and HIV History states he has history and receiving treatment as outpatient. 6. Tobacco dependence strongly recommended to stop smoking DVT prophylaxis with Lovenox Code Status: Full code. Discussed Condition With: patient, Nurse Miss Morrell, Charge Nurse, manager drive, MDR. Discharge Planning: Once LifeVest placed
[2017-12-11] MEDS: Furosemide 40 MG Tablet PO SCH ×2 (11:35→17:07)
--- NOTE | 2017-12-11 15:18 | P.DS ---
Date of admission: 12/08/17 06:50 Primary care physician: Odessa Benton Attending physician on discharge: Marin Sandoval Anticipated date of discharge: 12/11/17 Brief History from admission: This is a pleasant 62 y/o male who was brought in to Emergency Room Via EMS, due to Shortness of breath for past 3 days. He has history of COPD and CHF. He ran out of his inhalers. He is taking all his other oral medications however. No history of fever or chills as per the patient. He is coughing up greenish colored sputum. Patient is a smoker. Denies any chest pain. Oxygen saturation was 87 % on room air. It is 93% with 2 L of nasal cannula. has Hypertension. Marijuana abuse, received Bronchodilators in ER, IV Solu-Medrol CXR revealed Pulmonary Edema, BNP elevated His oxygen saturation on 3 L of oxygen via nasal cannula was 88%. was placed on BiPAP, admitted to [facility] and given Lasix 60 Mg. WBC 6, Hemoglobin 13.9, Platelet 168, Sodium 145, Potassium 3.7, Creatinine 1.07, BNP 1070. EKG normal sinus rhythm, Left axis deviation, Left Ventricular strain tachycardia. DS: Diagnosis - Discharge Diagnosis (1) CHF exacerbation Status: Acute (2) Respiratory failure Status: Acute (3) Polysubstance abuse Status: Acute (4) Tobacco dependence Status: Acute (5) HIV disease Status: Acute (6) Hepatitis C Status: Acute DS: Summary Hospital Course: This is a pleasant 62 y/o male who was brought in to Emergency Room Via EMS, due to Shortness of breath for past 3 days. He has history of COPD and CHF. He ran out of his inhalers. He is taking all his other oral medications however. No history of fever or chills as per the patient. He is coughing up greenish colored sputum. Patient is a smoker. Denies any chest pain. Oxygen saturation was 87 % on room air. It is 93% with 2 L of nasal cannula. has Hypertension. Marijuana abuse, received Bronchodilators in ER, IV Solu-Medrol CXR revealed Pulmonary Edema, BNP elevated His oxygen saturation on 3 L of oxygen via nasal cannula was 88%. was placed on BiPAP, admitted to [facility] and given Lasix 60 Mg. WBC 6, Hemoglobin 13.9, Platelet 168, Sodium 145, Potassium 3.7, Creatinine 1.07, BNP 1070. EKG normal sinus rhythm, Left axis deviation, Left Ventricular strain tachycardia. 12/09: Seen in his bedroom, his lungs are clear will continue present care until do not have the rest of his Laboratory and Tests performed. 12/10: Had his Echocardiogram found with Mild concentric left ventricular Hypertrophy, severely reduced Ejection fraction, 25-30%, mildly dilated left atrium, tricuspid valve regurgitation, Pulmonary arterial Pressure 27 mm Hg. Discussed with firefighting equipment specialist doctor Corrine Castanon recommended to continue Lasix and okay to discharge Home on LifeVest and close follow up by firefighting equipment specialist. 12/11: patient discussed with nurse Miss Morrell and MDR, he will go later today after LifeVest placed. okay to discharge by firefighting equipment specialist and follow as outpatient. Assessment and Plan - Plan 1. Respiratory Failure multifactorial secondary to CHF exacerbation asked for Echocardiogram, continue Lasix 40 mg every 12 hours, COPD exacerbation continue Bronchodilator, Mucolytic and incentive spirometry, Solu-Medrol decreased to 20 mg QID. will switch to by mouth Prednisone starting tomorrow low dose for five days. 2. CHF exacerbation awaiting for Echocardiogram for staging. Improving will decrease dose of Lasix to 40 Mg daily, will need LifeVest for discharge. he had mild increase of Creatinine level. to 1.38 3. Hypertension controlled. 4. Polysubstance abuse, Marijuana in the past, Cocaine positive. strongly recommended to stop behavior. 5. Hepatitis C and HIV History states he has history and receiving treatment as outpatient. 6. Tobacco dependence strongly recommended to stop smoking DVT prophylaxis with Lovenox Code Status: Full code. Discussed Condition With: patient, Nurse Miss Morrell, Charge Nurse, pmp certified project manager, MEGHNA. Discharge Planning: Once LifeVest placed - Time Spent with Patient Total time spent providing and/or coordinating discharge services: Less than 30 minutes - Quality: VTE Deep Vein Thrombosis/Pulmonary Embolism Present on Admission: No Exam Vital signs: Vital Signs 12/10/17 16:00 12/10/17 16:16 12/10/17 17:00 Temperature 98.7 F Pulse Rate 75 76 82 Respiratory Rate 18 18 Blood Pressure 112/70 Pulse Oximetry 95 12/10/17 17:37 12/10/17 19:00 12/10/17 20:00 Temperature 98.2 F Pulse Rate 89 80 72 Respiratory Rate 16 Blood Pressure 124/79 Pulse Oximetry 97 12/10/17 20:14 12/10/17 21:00 12/10/17 22:00 Temperature Pulse Rate 89 66 70 Respiratory Rate 19 Blood Pressure Pulse Oximetry 12/10/17 23:00 12/10/17 23:51 12/11/17 00:00 Temperature 98.2 F Pulse Rate 64 72 69 Respiratory Rate 16 16 Blood Pressure 114/75 Pulse Oximetry 98 12/11/17 01:00 12/11/17 02:00 12/11/17 03:00 Temperature 98.3 F Pulse Rate 72 72 72 Respiratory Rate 16 Blood Pressure 113/77 Pulse Oximetry 97 12/11/17 04:00 12/11/17 04:06 12/11/17 05:00 Temperature Pulse Rate 62 59 L 65 Respiratory Rate 16 Blood Pressure Pulse Oximetry 12/11/17 06:00 12/11/17 11:19 Temperature Pulse Rate 72 79 Respiratory Rate 16 Blood Pressure Pulse Oximetry 98 Intake & Output 12/10/17 12/11/17 12/11/17 18:59 06:59 18:59 Intake Total 920 / 920 480 / 480 Output Total 1150 / 1150 400 / 400 Balance -230 / -230 80 / 80 Weight 72 kg Intake: Oral 920 / 920 480 / 480 Output: Urine 1150 / 1150 400 / 400 Other: # Voids 1 Date of Last Bowel Movement 12/10/17 12/10/17 # Bowel Movements 1 1 Narrative: GENERAL: Awake, alert and No distress SKIN: Focused skin assessment warm/dry. HEAD: Atraumatic. Normocephalic. EYES: Pupils equal and round. No scleral icterus. No injection or drainage. ENT: No nasal bleeding or discharge. Mucous membranes pink and moist. NECK: Trachea midline. No JVD. CARDIOVASCULAR: Regular rate and rhythm. No murmur appreciated. RESPIRATORY: Breath sounds bilateral without crackles or wheezing. GASTROINTESTINAL: Abdomen soft, non-tender, nondistended. Hepatic and splenic margins not palpable. MUSCULOSKELETAL: No obvious deformities. No clubbing. No cyanosis. No edema. NEUROLOGICAL: Awake and alert. No obvious cranial nerve deficits. PSYCHIATRIC: Appropriate mood and affect; insight and judgment normal. Results Procedures completed during hospitalization: LiveVest placement - Impressions ITS Impressions Chest X-Ray 12/08/17 05:38 CONCLUSION: Findings suggest pulmonary edema in the medial one third of both lungs. Discharge Plan - Discharge Disposition Patient Disposition: 01 Discharge Home - Discharge Condition Condition: Stable - Discharge Order Discharge Orders: Discharge Order (Routine); Ordered 12/11/17 Ordered By: Marin Sandoval - Discharge Details Anticipated Discharge Date: 12/11/17 Discharge Comment: Follow up with PCP in three days - Physicians Team Attending Provider: Marin Sandoval Other Providers: Corrine Castanon MD
[2017-12-11 15:35] VITALS: RESP 18
[2017-12-11 17:53] VITALS: BP 122/82; TEMP 98; O2SAT 100
[2017-12-11 18:37] VITALS: PULSE 80
[2017-12-11] MEDS ORDERED: Influenza (Quadrivalent) Vaccine 0.5 ML Syringe IM ONE (20:00)
[2017-12-12] MEDS ORDERED: predniSONE 20 MG Tablet PO SCH (09:00)
== END 2017-12-11 20:11 | disposition home or self-care (01) ==
LOC: NEPC 05:11 → NEDA 06:50 → HIMC 09:45 → NEDA 09:48 → HCIS 12-09 08:05
PROVIDERS: ADMIT Hospitalist; ATTEND Hospitalist